=== PATIENT | male | born 1975 | race African-American/Black ===

== ENCOUNTER 2017-06-27 21:46 | Emergency (ER) | payer OTHER ==
[~2017-06-27] VITALS: Ht 165.1 cm; Wt 69.0 kg
[2017-06-28] MEDS ORDERED: KETOROLAC 60MG/2ML VIAL IM ONE (01:30)
[2017-06-28] MEDS ORDERED: DIAZEPAM 2 MG TABLET PO ONE (01:30)
[2017-06-28] MEDS ORDERED: OXYCODONE HCL/ACETAMINOPHEN 5/325MG TABLET PO ONE (01:30)
[2017-06-28 02:30] VITALS: BP 122/74
== END 2017-06-28 02:46 | disposition home or self-care (01) ==
LOC: ER 21:46
DX: M54.5 Low back pain (principal); G89.29 Other chronic pain; M79.604 Pain in right leg; R20.0 Anesthesia of skin; R03.0 Elevated blood-pressure reading, without diagnosis of hypertension; F17.210 Nicotine dependence, cigarettes, uncomplicated; Z87.828 Personal history of other (healed) physical injury and trauma
CPT/HCPCS: 96372; 99283; J1885; Z7610